=== PATIENT | male | born 1955 | race Caucasian/White ===

== ENCOUNTER → 2024-11-04 | Outpatient (CLI) | payer SELFPAY, OTHER ==
--- NOTE | 2024-11-04 07:37 | CT_ITS ---
PROCEDURE: Noncontrast CT of the left lower extremity. REASON FOR EXAM: Preoperative for left total knee arthroplasty TECHNIQUE: Contiguous axial CT images were obtained through the left hip, knee, and ankle. Sagittal and coronal reformats were created. COMPARISON: None. FINDINGS: Bones are osteopenic. Included bony pelvis and left hip joint are intact. Mild degenerative change left hip joint. No left femoral head avascular necrosis or sizable left hip joint effusion. Tiny fat containing left inguinal hernia. Soft tissues of the pelvis grossly unremarkable. Nonspecific edema in the anterior subcutaneous fat left knee. Moderate to severe tricompartmental degenerative changes of the left knee, greatest involving the medial compartment. No focal osteochondral lesion. There appears to be a 1 mm calcified loose intra-articular body at the posterior margin of the medial compartment. Small left knee effusion. Images through the left ankle show no acute fracture or dislocation. Serpiginous lucencies of the mid/posterior calcaneus, favored to represent vascular channels. CT/Extremity Lower without Contra IMPRESSION: Osteopenia. No acute bony abnormality of the left hip, knee, ankle. There are degenerative changes as above, to a moderate/severe degree involving the left knee. Severe medial compartment narrowing. Small left knee effusion. Nonspecific edema of the soft tissues and subcutaneous fat of the anterior left knee. One or more dose reduction techniques were used (e.g., Automated exposure contr ol, adjustment of the mA and/or kV according to patient size, use of iterative reconstruction technique). Reading [facility]
--- NOTE | 2024-11-04 07:37 | CT_ITS ---
PROCEDURE: EXTREMITY LOWER WITHOUT CONTRA REASON FOR EXAM: Surgical planning. [facility] protocol. TECHNIQUE: CT without intravenous contrast. Multiple axial coronal and sagittal images of the lower extremity was obtained. COMPARISON: None. FINDINGS: Bones: No evidence of fracture. Joints: Imaging of the right hip joint was obtained. No significant joint space narrowing is seen. Imaging of the right knee was obtained. There is a marked degree of joint space narrowing involving the medial compartment of the knee joint with degenerative spur formation of the distal medial femoral condyle. Marked degree of joint space narrowing involving the patellofemoral joint with anterior bony spur. Imaging of the right ankle was obtained. No significant abnormality is seen. Soft Tissues: Unremarkable. CT/Extremity Lower without Contra IMPRESSION: Marked degree of joint space narrowing with degenerative changes of the medial compartment of the right knee joint as well as the patellofemoral joint. One or more dose reduction techniques were used (e.g., Automated exposure contr ol, adjustment of the mA and/or kV according to patient size, use of iterative reconstruction technique). Reading Location: [id number]
== END | disposition home or self-care (01) ==
PROVIDERS: PCP Family Medicine; Referring Provider Orthopaedic Surgery; Visit Provider Orthopaedic Surgery
DX: M17.0 Bilateral primary osteoarthritis of knee (principal)
CPT/HCPCS: 73700

== ENCOUNTER 2024-11-15 14:43 | Inpatient (IN) | payer SELFPAY, OTHER ==
--- NOTE | 2024-11-04 07:34 | EKG12_ITS ---
Test Reason : PREOP Blood Pressure : */* mmHG Vent. Rate : 70 BPM Atrial Rate : 70 BPM P-R Int : 188 ms QRS Dur : 106 ms QT Int : 396 ms P-R-T Axes : -3 11 35 degrees QTcB Int : 427 ms Normal sinus rhythm Normal ECG Confirmed by VANESSA GARDINER, PAOLA ([id number]), senior technical editor ANTHONY ROBLES ([id number]) on 11/04/2024 12:53:57 PM Referred By: AUTUMN Confirmed By: PAOLA MENDEZ MD
[2024-11-04 08:54] LABS: Absolute Lymphocyte Count 2.27 X10^3/uL (0.83-4.51); Absolute Neutrophil Count 3.3 X10^3/uL (2.0-7.7); Basophil# 0.08 X10^3/uL; Basophil% 1.2 % (0-1); Eosinophil# 0.51 X10^3/uL; Eosinophils% 7.4 % (0-5); Hematocrit 42.2 % (40-54); Lymphocyte # 2.27 X10^3/ul (0.83-4.51); Lymphocyte % 33.1 % (19-41); Mean Corp Hgb Conc 33.2 g/dL (32-36); Mean Corpuscular Hgb 28.2 pg (27.0-32.0); Mean Corpuscular Volume 84.9 fL (80-94); Mean Platelet Vol. 10.2 fl (6.2-12.0); Monocyte# 0.69 X10^3/uL; Monocyte% 10.1 % (0-10); NRBC Flagged by Analyzer 0 % (0-5); Neutrophil # 3.29 X10^3/uL (2.7-7.7); Neutrophil % 47.9 % (47-70); Platelet Count 233 K/mm3 (150-450); RBC Distribution Width CV 14.5 % (11.6-14.6); RBC Distribution Width SD 44.8 fl (35.1-43.9); Red Blood Count 4.97 M/mm3 (4.6-6.2); White Blood Count 6.9 K/mm3 (4.4-11.0)
[2024-11-04 09:10] LABS: Partial Thromboplast Time 25.5 Seconds (24.1-36.2)
[2024-11-04 09:15] LABS: Anion Gap 6 (5-15); BUN 24 mg/dL (7-18); BUN/Creat Ratio 20.7 RATIO (10-20); Calcium,Total 8.9 mg/dL (8.5-10.1); Chloride 109 mmol/L (98-107); Creatinine, Serum 1.16 mg/dL (0.70-1.30); EST Glomerular Filtration Rate 67 mL/min (>60); Est Glom Filt Rate - Afr Amer 81 mL/min (>60); Glucose 104 mg/dL (74-106); Magnesium 2.1 mg/dL (1.6-2.6); Potassium 4.1 mmol/L (3.5-5.1); Prothrombin Time (Protime)PT. 13.2 SECONDS (11.7-14.9); Sodium Level 140 mmol/L (136-145)
[2024-11-04 09:24] LABS: Hemoglobin A1c 6.7 % (3.8-5.6)
[2024-11-05 05:07] LABS: Fructosamine 234 umol/L (0-285)
[2024-11-15] VITALS (16 sets, daily range): BP systolic 111–184; BP diastolic 75–98; PULSE 67–74; RESP 16–24; TEMP 36.1–36.9; O2SAT 93–99; BMI 35.9; BMI 35.8
[2024-11-15 09:23] LABS: Bedside Glucose 129 mg/dL (74-106)
[2024-11-15] MEDS: 0.9% Normal Saline (1000mL) 1,000 ML 15 ML IV (09:26)
[2024-11-15] MEDS: Celecoxib 200 MG Capsule 400 MG PO (09:27)
[2024-11-15] MEDS: Magnesium 1 GM over 15 mins IV (09:27)
[2024-11-15] MEDS: Gabapentin 600 MG Tablet PO (09:28)
[2024-11-15] MEDS: Scopolamine 1mg/72hr Patch 1 PATCH TD (09:28)
[2024-11-15] MEDS: Acetaminophen 500 MG Tablet 1000 MG PO ×2 (09:29→21:30)
--- NOTE | 2024-11-15 09:44 | PCM.PRE.AN2 ---
ASA Classification* ASA Classification ASA Classification: 2 Assessment & Plan Anesthesia* Anesthesia Assessment Anesthesia Assessment: Discussed sedation and/or anesthesia options, risks, benefits, and alternatives with patient/parents/legal guardian/POA. Questions invited. The patient/parents/legal guardian/POA seems to understand and agrees to proceed with anesthesia plan. Reviewed the physical assessment, medical history, allergy history and patient home medications list prior to surgery/procedure/anesthetic and documented any changes. Performed airway and anesthesia risk assessments. Anesthesia Type Anesthesia Type: General and Block (Patient is consented for bilateral adductor canal blocks.) History Source History Obtained from:: Patient and Chart Anesthesia Focused Assessment* Temperature: 98.5 F Pulse Rate: 71 Blood Pressure: 184/98 Respiratory Rate: 18 Pulse Ox: 97 Oxygen Delivery Method: Room Air Airway Assessment Mouth opens: >3 cm Mallampati Score: I Teeth Condition: Missing (Multiple missing teeth. Rest are tight.) Neck Range of motion (ROM): Full ROM Focused Labs Anesthesia Preop lab: CBC WBC 6.9 K/mm3 (4.4-11.0) 11/04/24 08:21 11/04/24 RBC 4.97 M/mm3 (4.6-6.2) 11/04/24 08:21 11/04/24 Hgb 14.0 g/dL (13.0-16.5) 11/04/24 08:21 11/04/24 Hct 42.2 % (40-54) 11/04/24 08:21 11/04/24 Plt Count 233 K/mm3 (150-450) 11/04/24 08:21 11/04/24 CHEMISTRY Potassium 4.1 mmol/L (3.5-5.1) 11/04/24 08:21 11/04/24 Sodium 140 mmol/L (136-145) 11/04/24 08:21 11/04/24 Magnesium 2.1 mg/dL (1.6-2.6) 11/04/24 08:21 11/04/24 BUN 24 mg/dL (7-18) H 11/04/24 08:21 11/04/24 Creatinine 1.16 mg/dL (0.70-1.30) 11/04/24 08:21 11/04/24 Glucose 104 mg/dL (74-106) 11/04/24 08:21 11/04/24 POC Glucose 129 mg/dL (74-106) H 11/15/24 09:04 11/15/24 COAG PT 13.2 SECONDS (11.7-14.9) 11/04/24 08:21 11/04/24 Pre-Assessment Diagnosis/Proposed Procedure Planned Operative Procedure(s): (B) ERAS, Total Knee Replacement Robotic Arm Assist Anesthesia History Anesthesia History - industrial order clerk: Anesthesia History - industrial order clerk Hx Hospitalization No 11/01/24 08:38 Any Problems With Anesthesia No 11/01/24 08:38 Cholinesterase deficiency No 11/01/24 08:38 You/Your Family Experience No 11/01/24 08:38 fever (hyperthermia) with Relationship Recent Exposure to Contagious No 11/15/24 09:02 Disease Does patient have nerve No 11/01/24 08:38 stimulator Patient instructed to have device shut off --Does patient have Pacemaker No 11/15/24 09:02 or ICD? When Was Last Pacemaker Check QUESTION #4 FULL TEXT: You/Your Family Experience fever (hyperthermia) with Anesthesia Last Oral Intake Last Oral intake: Last Oral Intake NPO since 06:30 11/15/24 09:02 Meds taken in AM with sips of Yes 11/15/24 09:02 water? Meds patient instructed to take am of surgery Any additional information?: Yes NPO since: 06:30 (Patient had his preop Ensure at 6:30 AM.) Meds taken in AM with sips of water?: Yes PONV PONV - industrial order clerk: PONV - industrial order clerk Female No 11/01/24 08:38 HX of Motion Sickness No 11/01/24 08:38 HX of N/V After Surgery No 11/01/24 08:38 Non-Smoker Yes 11/01/24 08:38 Duration of Surgery greater Yes 11/01/24 08:38 than 60 minutes Number of Risk Factors 2 11/01/24 08:38 PONV Score Moderate Risk 11/01/24 08:38 Height & Weight Height & Weight: Anesthesia: Height & Weight Height 5 ft 6 in 11/15/24 09:02 Weight: 101 kg 11/15/24 09:02 Body Mass Index (BMI) 35.9 11/15/24 09:02 Respiratory Assessment Respiratory Assessment - industrial order clerk: Respiratory Tract Infection Hx - industrial order clerk Hx Respiratory Tract Infection No 11/01/24 08:38 STOP Sleep Apnea STOP Sleep Apnea - industrial order clerk: STOP Sleep Apnea - industrial order clerk Hx Hypertension Yes: CONTROLLED ON MED 11/01/24 08:38 Hx Sleep Apnea No 11/01/24 08:38 CPAP BIPAP Do you snore loudly (louder No 11/01/24 08:38 than talking or can be heard Do you often feel tired/ No 11/01/24 08:38 fatigued/ sleepy during daytime? Has anyone observed you stop No 11/01/24 08:38 breathing during sleep? STOP Results Negative 11/01/24 08:38 QUESTION #5 FULL TEXT : Do you snore loudly (louder than talking or can be heard through closed doors)? Tobacco Use History Tobacco Use History - industrial order clerk: Tobacco Use History - industrial order clerk Tobacco Use Smoking Status Never smoker 11/01/24 08:38 Hx Tobacco Use No 11/01/24 08:38 Years Smoking Packs Smoked per Day Smoking Cessation Date was within the last 15 years Hx Smoking Cessation Date Hx Smoking Cessation Counseling Hematologic Medial History Hematologic Hx - industrial order clerk: Hematologic Medical Hx - documentation coordinator Hx of Blood Transfusion No 11/01/24 08:38 Hx of Transfusion in last 3 No 11/01/24 08:38 Months Date of Last Transfusion (if within last 3 months) Ever experience any problems No 11/01/24 08:38 with transfusion(s)? Specify any problems Hx of Preganancy in last 3 N/A 11/01/24 08:38 Months Nurse Filling Out Transfusion VCHRISTIN 11/01/24 08:38 & Questions: Date: 11/01/24 11/01/24 08:38 Time: 08:39 11/01/24 08:38 Patient unable to answer at this time (ie. confused, unrespo /Reproduction History /Reproductive History - industrial order clerk: /Reproductive Hx- industrial order clerk Hx Now Gestational Age (in weeks): EDC: Hx Hx Para Hx Section SAB Active Medications Active Medications: Current Medications Generic Name Dose Route Start Last Admin Trade Name Freq PRN Reason Stop Dose Admin Acetaminophen 1,000 mg 11/15/24 10:30 11/15/24 09:29 Acetaminophen 500 Mg Tablet PO 11/15/24 10:31 1,000 mg X1 ONE Administration Celecoxib 400 mg 11/15/24 10:30 11/15/24 09:27 Celecoxib 200 Mg Capsule PO 11/15/24 10:31 400 mg X1 ONE Administration Dexamethasone Sodium Phosphate 10 mg 11/15/24 10:30 Dexamethasone 10 Mg/Ml Vial IV 11/15/24 10:31 X1 ONE Gabapentin 600 mg 11/15/24 10:30 11/15/24 09:28 Gabapentin 600 Mg Tablet PO 11/15/24 10:31 600 mg X1 ONE Administration Cefazolin Sodium 2 gm/ N/A 20 mls @ 400 mls/hr 11/15/24 10:30 IV 11/15/24 10:32 PREOP ONE Tranexamic Acid 1,000 mg/ 110 mls @ 660 mls/hr 11/15/24 10:30 Sodium Chloride IV 11/15/24 10:39 X1 ONE Tranexamic Acid 1,000 mg/ 110 mls @ 660 mls/hr 11/15/24 10:30 Sodium Chloride IV 11/15/24 10:39 X1 ONE Lactated Ringer's 1,000 mls @ 125 mls/hr 11/15/24 10:30 IV 11/15/24 18:29 .Q8H REJI Magnesium Sulfate 1 gm/ 102 mls @ 408 mls/hr 11/15/24 10:30 11/15/24 09:27 Dextrose IV 11/15/24 10:44 408 mls/hr X1 ONE Administration Sodium Chloride 1,000 mls @ 15 mls/hr 11/15/24 08:50 11/15/24 09:26 IV 11/20/24 22:09 15 mls/hr .Q48H REJI Administration Protocol Insulin Human Lispro 1 - 6 unit 11/15/24 10:30 Insulin Lispro 100 Unit/Ml Insuln.Pen SC 11/15/24 18:00 Q4H PRN PRN BG>/= 180, SEE PROTOCOL Protocol Scopolamine HBr 1 patch 11/15/24 10:30 11/15/24 09:28 Scopolamine 1mg/72hr Patch TD 11/15/24 10:31 1 patch X1 ONE Administration Sodium Chloride 5 - 15 ml 11/15/24 10:30 0.9% Nacl Peripheral Flush Adult/Peds IV UD PRN SALINE FLUSH PFSH Medical History Wears glasses Arthritis Kidney stones Injury of head and neck Non-smoker Asthma History of pain when walking Hypertension Home Medications ?Medication ?Instructions ?Recorded ?Last Taken ?Type atenolol 50 mg tablet 50 mg PO QDAY BP 09/28/24 11/15/24 06:30 History lisinopril 40 mg tablet 40 mg PO QDAY BP 09/28/24 11/01/24 History albuterol sulfate 90 mcg/actuation 2 puff inhalation Q6H PRN wheezing 11/01/24 Unknown History aerosol inhaler fluticasone furoate 100 1 inh inhalation DAILY asthma 11/15/24 11/14/24 History mcg-vilanterol 25 mcg/dose inhalation powder Allergy/AdvReac Type Severity Reaction Status Date / Time No Known Allergies Allergy Verified 11/15/24 09:00 Family History Mother Cancer Father Cancer Surgical History H/O hernia repair H/O rotator cuff surgery Social History household members: spouse Smoking Status: Never smoker alcohol intake: never Review of Systems (Anesthesia) ROS Narrative System reviewed and no additional complaints, except as documented.
--- NOTE | 2024-11-15 09:47 | PCM.HP.BLA ---
History and Physical Date of Admission: 11/15/24 [facility] [address] [place] [address] OFFICE VISIT Date of Service: 09/28/24 MR#: [id number] Acct: [id number] Name: SHANNAN ALEXANDER Rep #: [id number] : 1955 Provider: Dr. Neri Ward DO Age/Sex: 69/M Location: [facility] [place].[facility] Status: Signed Intake Vital Signs 09/28/2507:35 Height 5 ft 7 in Weight: 222 lb BMI 34.7 Intake Visit Reasons: BL KNEES Is patient in pain?: Yes Pain scale (1-10): 6 Allergies No Known Allergies Allergy (Unverified 09/28/24 08:36) Medications ?Medication ?Instructions ?Recorded ?Confirmed ?Type atenolol 50 mg tablet 50 mg PO QDAY 09/28/24 09/28/24 History lisinopril 40 mg tablet 40 mg PO QDAY 09/28/24 09/28/24 History Have you fallen in the past year?: No PFSH Surgical History (Updated 09/28/24 @ 08:38 by María Elena Stephens) H/O hernia repair H/O rotator cuff surgery Family History (Updated 09/28/24 @ 08:39 by María Elena Stephens) Mother CancerFather Cancer Social History household members: spouse Smoking Status: Never smoker alcohol intake: never HPI BL KNEES Details: This documentation accurately reflects the service provided and the decisions made by me, Dr. Neri Ward, 09/28/24 0754. Part of today?s visit was documented by [ ], acting as scribe. SHANNAN ALEXANDER is a 69 year old M here today for bilateral knee pain 1 is not worse than the other. Patient notes that he has had knee pain for many years with his pain worsening. Patient denies any known injury. Patient denies any knee surgery. He complains of pain all over his knees. He has increased pain with ambulation, prolonged standing and ambulating stairs which are affecting his activities of daily living. He isnt able to carry things up the stairs. Patient denies any popping or clicking. Patient denies any knee instability. He denies any injections, physical therapy, or bracing. He took tippi tea which was helpful but caused him to gain weight because of the steroid that was in it. Patient had xrays at [facility] which is here for review. He has not had any treatment. He denies any MRI. Patient notes that he takes ibuprofen three tablets if needed. He denies any medical problems. Ortho Exam General General: Yes no acute distress Neurologic: Yes alert and Yes oriented x3 Psychologic: Yes reasonable and appropriate Right Knee Skin/Wound: Yes CDI, No erythema, No ecchymosis and No swelling Knee ROM: Yes ROM-Extension -20 to 0 (-5) and Yes ROM-Flexion 0-140 (118) Stability: NML: Anterior Drawer, NML: Posterior Drawer, NML: Valgus 0, NML: Valgus 30 (3mm medial gapping), NML: Varus 0 and NML: Varus 30 Patella Translation: 1 KNEE: varus deformity, good ankle range of motion. normal sensation to light palpation. Left Knee Skin/Wound: Yes CDI, No ecchymosis, No erythema and No swelling Knee ROM: Yes ROM-Extension -20 to 0 (-4) and Yes ROM-Flexion 0-140 (125) Stability: NML: Anterior Drawer, NML: Posterior Drawer, NML: Valgus 0, NML: Valgus 30 (2mm medial gapping), NML: Varus 0 and NML: Varus 30 Patella Translation: 1 KNEE: varus deformity, good ankle range of motion Head: Normocephalic Atraumatic Chest: symmetrical rise, non-labored breathing, no audible wheeze Abdomen: no guarding, non-rigid Supplemental Info 03/28/2024 x-ray left knee on disc: Advanced [id number] medial compartment arthrosis with varus deformity moderate patellofemoral arthrosis mild lateral compartment arthrosis 03/28/2024 x-ray right knee on disc: Advanced [id number] medial compartment arthrosis with varus deformity moderate patellofemoral arthrosis mild lateral compartment arthrosis Coding Level of Care Code Off vis,new,level 3 Diagnoses Bilateral primary osteoarthritis of knee M17.0 Assessment and Plan Assessment and Plan (1) Bilateral primary osteoarthritis of knee: Status: Acute Plan Spoke with the patient about the anatomy of the knee and etiology of his pain. He has advanced knee osteoarthritis worse medial compartment bilateral. Explained his options- steroid injection, viscosupplementation injections, increase ibuprofen to take daily, physical therapy, bracing, or a total knee arthroplasty. The viscosupplementation injections might not be as helpful with his level of osteoarthritis. Recommended the patient not take the tippi tea due to the steroid not being measured in the tea. Patient may have a steroid injection every 3 months as needed. Patient wishes to proceed with bilateral total knee arthroplasty. explained the surgery procedure, risks and benefits. Spoke with the patient about having bilateral total knee arthroplasty and the increased risks of doing both at the same time and I would recommend he does 1 at a time. He has increased risks of infection and blood clot. Patient will be on a blood thinner post op help with risk of blood clot however he can still get 1. He should also elevate his leg post op and wear compression stockings. Spoke with him about iovera procedure to help with post op pain. Patient will need a CT scan for makoplasty. Spoke with him about having a mechanical feel post op as well as lateral sided numbness. He will do formal physical therapy immediately following his surgery to prevent stiffness. He will need to achieve full range of motion by 6 weeks otherwise risking manipulation under anesthesia and chronic knee stiffness . In regards to kneeling he may never feel comfortable kneeling however I would recommend if he does try it to wear a knee pad . Explained the lengthy time it may take to heal and it may take up to 2 years to fully heal. Risks, benefits and alternatives of surgery reviewed including but not limited to bleeding, infection, nerve, artery and/or tissue damage, fracture, VTE, mechanical feel of the knee, continued pain, stiffness and expected post-operative course. He would need to stop all NSAIDs 7 days prior to surgery. Patient is inpatient surgery and may require rehab or transitional care considering the extensive nature of bilateral knee arthroplasty tentative surgery date November 15, 2024. Follow up for iovera or 2 week post op or sooner if pain, swelling, numbness or associated symptoms, or concerns develop. All questions answered. Patient in agreement of plan. Clinical Quality Measures Falls Risk Screening/Assistive Devices Have you fallen in the past year?: No 09/28/24 0959 <Electronically signed by Neri Ward DO> Date Neri Ward DO I have examined the patient and the H&P has been reviewed. There are no clinical changes since date of exam.
[2024-11-15] MEDS: Cefazolin 2 GM in Syringe 10 ML IV (10:22)
--- NOTE | 2024-11-15 10:30 | KNEE_PTH ---
PATIENT: SHANNAN ALEXANDER LOC: MS3 U#:[id number] AGE/SX: 69/M ROOM: [facility] [place] RE11/15/[address]: Dr. Nrei Ward DO : 1955 BED: 1 DIS: 11/17/2024 SPEC #: [id number] RECD: 11/15/24 17:03 STATUS: RADHA HERI #: [id number] GÓMEZ: 11/15/24 10:[address]: Neri Ward DEPT: SURGICAL PATHOLOGY RECD BY: Chi Grace ENTERED: 11/16/24 08:38 SP TYPE: TOTAL KNEE OTHR DR: Dr. Ping Murray MD Tissues: A - Knee, NOS B - Knee, NOS Procedures: Decalcification bone/plaque Surgery Specimen Level IV HEADER OPERATION: Total knee replacement robotic arm assist PRE-OP DIAGNOSIS: Bilateral primary osteoarthritis of knee TISSUE SUBMITTED: A- Right knee bone and tissue, B- Left knee bone and tissue MICROSCOPIC DIAGNOSIS A. Right knee, bone and soft tissue, total knee arthroplasty: * Articular bone with reactive and degenerative changes. * Fibroadipose with mild synovial hyperplasia. B. Left knee, bone, total knee arthroplasty: * Articular bone with reactive and degenerative changes. MICROSCOPIC DESCRIPTION Slides are reviewed. GROSS DESCRIPTION Received is one container designated bone and soft tissue right knee. The specimen consists of multiple fragments of pearson-yellow bone measuring in aggregate 9 x 9 x 4 cm. Also in the specimen container is multiple fragments of yellow-white soft tissue measuring in aggregate 5 x 1.5 x 1 cm. A number of bony fragments contain articular surfaces consistent with tibial plateau and femoral condyle and displaying prominent osteophyte formation, eburnation and bone erosion. [employer]ing [employer] Instructor sections are submitted in two cassettes as follows: 1 - soft tissue, 2 - bone after decalcification. B. Received is one container designated bone and soft tissue left knee. The specimen consists of multiple fragments of pearson-yellow bone measuring in aggregate 10 x 9 x 3 cm. No soft tissue is identified. A number of bony fragments contain articular surfaces consistent with tibial plateau and femoral condyle and displaying prominent osteophyte formation, eburnation and bone erosion. Banking And Finance Instructor sections are submitted in one cassette after decalcification. 11/16/2024 TC: CPT: 11561b8, [id number]
[2024-11-15] MEDS: TXA 1000mg in NS100 100ml (IVPB at Incision) 660 MG IV (10:35)
[2024-11-15] MEDS: dexAMETHasone 10 MG/ML Vial IV (10:45)
[2024-11-15] MEDS: TXA 1000mg in NS100 100ml (IVPB at Closure) 660 MG IV (12:41)
[2024-11-15] MEDS: Epinephrine (1 mg/ml) 1 MG/ML VIAL (14:39)
[2024-11-15] MEDS: 0.9% Normal Saline (Pres. free 10 ML Vial (14:40)
[2024-11-15] MEDS: dexAMETHasone 4 MG/ML Vial (14:40)
[2024-11-15] MEDS: Bupivacaine 0.5% PF 10 ML VIAL (14:41)
--- NOTE | 2024-11-15 14:43 | RAD_ITS ---
PROCEDURE: KNEE 1 OR 2 VIEWS REASON FOR EXAM: Total left knee replacement. TECHNIQUE: 2 view(s) of the left knee COMPARISON: None. FINDINGS: The patient is status post total knee replacement. There is good alignment. Postoperative soft tissue changes. RAD/Knee 1 or 2 Views IMPRESSION: Status post total knee replacement. There is good alignment. Postoperative so ft tissue changes. Reading Location: [facility]
--- NOTE | 2024-11-15 14:43 | RAD_ITS ---
PROCEDURE: KNEE 1 OR 2 VIEWS REASON FOR EXAM: Total knee replacement. TECHNIQUE: 2 view(s) of the right knee COMPARISON: None. FINDINGS: The patient is status post right knee replacement. There is good alignment. Postoperative soft tissue changes. RAD/Knee 1 or 2 Views IMPRESSION: Status post total knee replacement. There is good alignment. Postoperative soft tissue changes. Reading Location: [facility]
--- NOTE | 2024-11-15 14:47 | OP.PCM_ITS ---
Operative Report (Standard) Operative Information Date of Procedure: 11/15/24 Pre-Operative Diagnosis: Bilateral knee DJD Post-Operative Diagnosis: Same Surgery/Procedure Performed: Bilateral total knee arthroplasty weft straightener: Yes Assistant Passenger Locomotive Engineer: Karri Ramírez Tasks completed by accounts receivable assistant: Opening & closing, Implanting device and Retracting Additional certified pharmacist assistant?: No Type of Anesthesia: General RN Documented Start/Stop Times: Operation Date: 11/15/24 10:30 Case Time Into Pre-Op 11/15/24 08:44 Out of Pre-Op 11/15/24 10:20 Anesthesia Start 11/15/24 10:22 Into Room 11/15/24 10:22 Procedure Start 11/15/24 10:47 Procedure Start Time: 10:47 Procedure Stop Time: 14:47 Select all DRAINS/GRAFTS/IMPLANTS that apply: Prosthetic device Prosthetic device details: [place] triathlon Estimated Blood Loss: 200 Specimen collected: Yes Description of specimen(s) removed: Bone and soft tissue Description of surgery: Procedure #1 Preoperative diagnosis: Right knee DJD Postoperative diagnosis: Same Procedure: Right total knee arthroplasty CT guided Robotic Assisted Implant: [place] triathlon press fit, femoral component size 4, tibial baseplate size 5, asymmetric patella size 35, polyethylene X3 size 9 CS Anesthesia: General With adductor canal block postoperatively Tourniquet time: 18 minutes at 300 mmHg Complications: None Condition: Stable to PACU Estimated blood loss: 100 cc Medical Services Assistant Karri Ramírez. My physician certified pharmacist assistant was a vital part of this case. He was important in appropriate retraction during the case, and protection of soft tissues during procedure. His intimate knowledge of the case and my steps aided in safe and expedient completion of the procedure as well as appropriate position of the extremity during the case. He was also vital in assisting with closure under my direct supervision. Indication for procedure: This is a 69-year-old male with longstanding history of bilateral degenerative joint diseaseof knees who has failed conservative treatment and wished to proceed with elective total knee arthroplasty. Risk benefits and alternatives were reviewed including; risk of bleeding, infection, nerve artery and tissue damage, continued pain, postoperative stiffness, venous thromboembolism, need for postoperative rehabilitation, mechanical feel to the knee, and expected postoperative course. The pre- operative CT and templating was performed with component sizing. Procedure: The patient was met in the preoperative holding area. The operative extremity was identified by both patient and physician and was marked. Patient was met by anesthesia. An adductor canal block was placed by anesthesia postoperatively the patient was brought back to the operating room on a wheeled cart and transferred to the operating table in the supine position. Anesthesia was started. A well-padded tourniquet was placed on the operative extremity. The patient was prepped and draped in the usual sterile fashion. A timeout was called to ensure the proper patient procedure and extremity were being contemplated. An esmarch was used to exsanguinate the extremity. The tourniquet was inflated. A 10 blade scalpel was used to make a midline incision down through the skin and subcutaneous tissue. Skin retractors placed. Bovie and Aquamantis were used to perform meticulous hemostasis. full-thickness flaps were elevated medial and lateral along the joint capsule. A deep blade scalpel was used to perform a medial parapatellar arthrotomy. The knee was brought to full extension. A bovie was used to release the soft tissues off the most proximal aspect of the medial tibial plateau, a three-quarter inch curved osteotome was also used in this process. The infrapatellar fat pad was excised. The suprapatellar fat pad was excised partially anteriorolateraly and portion the anterioromedial pad was elevated from the femur. At this point our intra- articular femoral array was placed at a 45 degree angle proximal and posterior to the medial epicondyle. femoral checkpoint was placed at this time. Our tibial array was placed partially intra incisional 1 stab incision was made for the inferior pin with a 15 blade scaple, and pins were placed and attached to the tibial array , tibial checkpoint was placed in the proximal tibial metaphysis. Tourniquet was let down. At this point registration mancini were taken throughout the knee . Once the knee was registered we then tensioned the medial and lateral ligaments in extension and 90 degrees of flexion. We then used these numbers to adjust our components within parameters to balance the knee in both flexion and extension once this was done on our monitor we then proceeded with using the robotic arm to make our tibial plateau cut, anterior and posterior chamfer and distal femur cuts. we removed the cut fragments with the use of a bovie and Shanice, we did use a lamina chemical test engineer to insure we visualized and removed all posterior osteophytes and at this time also used the Aquamantis on the posterior joint capsule. we then trialed and achieved the desired plan with a well-balanced knee. we used the green probe to francesco the corresponding tibial rotation based on our CT template. Lug holes were drilled in the femur the tibia preparation was completed with the appropriate sized base plate pinned based on previous rotation francesco. An appropriate sized fin punch was used on the tibia and 4 corner drill was used for the press fit component and the patella was prepared by first using a caliper to ensure sufficient bone stock and a patellar reamer to remove the desired amount of bone. lug holes drilled for an asymmetric poly. We then brought the knee through range of motion with excellent patellar tracking. We thoroughly irrigated the knee. Trial components were removed a posterior capsular injection was preformed with our standard cocktail. In addition the aqua Mantis was also used to aid in he mostasis. Betadine rinse was allowed to sit and washed out completely. Components were press-fit into place. Aricept rinse was then used followed by several more liters of irrigation after it was allowed to sit. The joint capsule was closed with #1 Ethibond [id number]-eulmo's in the upper part of the arthrotomy and #1 Vicryl in the lower part of the arthrotomy. , Followed by 2-0 Vicryl in the subcutaneous tissues with beti in the skin. Arrays and checkpoints were removed prior to closure all counts were correct stab incisions were closed with a staple standard dressing in the form of Mepilex AG for the main incision and a small Mepilex over the pin holes. Thigh-high SERJIO hose applied over top of dressing. Procedure #2 Preoperative diagnosis: Left knee DJD Postoperative diagnosis: Same Procedure: Left total knee arthroplasty CT guided Robotic Assisted Implant: [place] triathlon press fit, femoral component size 4, tibial baseplate size 5, asymmetric patella size 35, polyethylene X3 size 9 CS Anesthesia: General With adductor canal block Tourniquet time: 15 minutes at 300 mmHg Complications: None Condition: Stable to PACU Estimated blood loss: 100 cc Medical Services Assistant Karri Ramírez. My physician certified pharmacist assistant was a vital part of this case. He was important in appropriate retraction during the case, and protection of soft tissues during procedure. His intimate knowledge of the case and my steps aided in safe and expedient completion of the procedure as well as appropriate position of the extremity during the case. He was also vital in assisting with closure under my direct supervision. Indication for procedure: Same as above Procedure: The patient was met in the preoperative holding area. The operative extremity was identified by both patient and physician and was marked. Patient was met by anesthesia. An adductor canal block was placed by anesthesia postoperatively the patient was brought back to the operating room on a wheeled cart and transferred to the operating table in the supine position. Anesthesia was started. A well-padded tourniquet was placed on the operative extremity. The patient was prepped and draped in the usual sterile fashion. A timeout was called to ensure the proper patient procedure and extremity were being contemplated. An esmarch was used to exsanguinate the extremity. The tourniquet was inflated. A 10 blade scalpel was used to make a midline incision down through the skin and subcutaneous tissue. Skin retractors placed. Bovie and Aquamantis were used to perform meticulous hemostasis. full-thickness flaps were elevated medial and lateral along the joint capsule. A deep blade scalpel was used to perform a medial parapatellar arthrotomy. The knee was brought to full extension. A bovie was used to release the soft tissues off the most proximal aspect of the medial tibial plateau, a three-quarter inch curved osteotome was also used in this process. The infrapatellar fat pad was excised. The suprapatellar fat pad was excised partially anteriorolateraly and portion the anterioromedial pad was elevated from the femur. At this point our intra- articular femoral array was placed at a 45 degree angle proximal and posterior to the medial epicondyle. femoral checkpoint was placed at this time. Our tibial array was placed partially intra incisional 1 stab incision was made for the inferior pin with a 15 blade scaple, and pins were placed and attached to the tibial array , tibial checkpoint was placed in the proximal tibial metaphysis. Tourniquet was let down. At this point registration mancini were taken throughout the knee . Once the knee was registered we then tensioned the medial and lateral ligaments in extension and 90 degrees of flexion. We then used these numbers to adjust our components within parameters to balance the knee in both flexion and extension once this was done on our monitor we then proceeded with using the robotic arm to make our tibial plateau cut, anterior a nd posterior chamfer and distal femur cuts. we removed the cut fragments with the use of a bovie and Shanice, we did use a lamina chemical test engineer to insure we visualized and removed all posterior osteophytes and at this time also used the Aquamantis on the posterior joint capsule. we then trialed and achieved the desired plan with a well-balanced knee. we used the green probe to francesco the corresponding tibial rotation based on our CT template. Lug holes were drilled in the femur the tibia preparation was completed with the appropriate sized base plate pinned based on previous rotation francesco. An appropriate sized fin punch was used on the tibia and 4 corner drill was used for the press fit component and the patella was prepared by first using a caliper to ensure sufficient bone stock and a patellar reamer to remove the desired amount of bone. lug holes drilled for an asymmetric poly. We then brought the knee through range of motion with excellent patellar tracking. We thoroughly irrigated the knee. Trial components were removed a posterior capsular injection was preformed with our standard cocktail. In addition the aqua Mantis was also used to aid in hemostasis. Betadine rinse was allowed to sit and washed out completely. Components were press-fit into place. Aricept rinse was then used followed by several more liters of irrigation after it was allowed to sit. The joint capsu le was closed with #1 Ethibond rkwgll-en-gurku's in the upper part of the arthrotomy and #1 Vicryl in the lower part of the arthrotomy. , Followed by 2-0 Vicryl in the subcutaneous tissues with beti in the skin. Arrays and checkpoints were removed prior to closure all counts were correct stab incisions were closed with a staple standard dressing in the form of Mepilex AG for the main incision and a small Mepilex over the pin holes. Thigh-high SERJIO hose applied over top of dressing. Patient tolerated the procedure well and was directed to PACU in stable condition . There were no intraoperative complications. Surgical Findings: Degenerative joint disease Complications Complications: No
--- NOTE | 2024-11-15 15:11 | PCM.POST.ANE ---
Anesthesia: Postop Eval I Current Vital Signs Temperature: 97.1 F Pulse Rate: 74 Blood Pressure: 124/76 Respiratory Rate: 16 Pulse Ox: 95 Oxygen Delivery Method: Venturi Mask Oxygen Flow Rate (L/min): 6 Assessment Airway patent: Yes Spontaneous unlabored respirations: Yes Mental status: Calm nausea: No Vomiting: No Anesthesia Complication: No Fluid Hydration Crystalloid volume administer (ml): 1,900 Total IV fluid infused: 1,900 Progress Note Anesthesia document: Postop Eval 1 completed: Yes
[2024-11-15] MEDS: Lactated Ringers 1,000 ML 125 ML IV ×2 (16:00→17:45)
[2024-11-15] MEDS: Cefazolin 2 GM in Syringe IV (17:45)
--- NOTE | 2024-11-15 19:05 | POSTOPAN2_ITS ---
Anesthesia Postop Eval I Sum Postop Eval Completion status Anesthesia document: Postop Eval 1 completed: Yes Anesthesia Postop Eval I Summary Anesthesia Postop Eval I Summary: Anesthesia Postop Eval I: Assessment Summary Airway patent Yes 11/15/24 15:12 GRAIN OILSEED OR PASTURE FARM WORKER.[email or web address] Spontaneous unlabored Yes 11/15/24 15:12 GRAIN OILSEED OR PASTURE FARM WORKER.LMIL respirations Mental status Calm 11/15/24 15:12 GRAIN OILSEED OR PASTURE FARM WORKER.LMIL nausea No 11/15/24 15:12 GRAIN OILSEED OR PASTURE FARM WORKER.LMIL Vomiting No 11/15/24 15:12 GRAIN OILSEED OR PASTURE FARM WORKER.LMIL Anesthesia Postop Eval I: Fluid Summary Crystalloid volume administer 1,900 11/15/24 15:12 GRAIN OILSEED OR PASTURE FARM WORKER.LMIL (ml) Colloids volume administered ( ml) Blood Product volume administered (ml) Total IV fluid infused 1,900 11/15/24 15:12 GRAIN OILSEED OR PASTURE FARM WORKER.LMIL Anesthesia Postop Eval I: Summary Notes Anesthesia Complication No 11/15/24 15:12 GRAIN OILSEED OR PASTURE FARM WORKER.LMIL Anesthesia Complication Comment: Post-operative progress note Anesthesia: Postop Eval II Evaluation Mental status: Awake and Calm Pain Level: 1 nausea: No Vomiting: No Complications Anesthesia Complication: No
--- NOTE | 2024-11-15 19:05 | PCM.POSTANE2 ---
Anesthesia Postop Eval I Sum Postop Eval Completion status Anesthesia document: Postop Eval 1 completed: Yes Anesthesia Postop Eval I Summary Anesthesia Postop Eval I Summary: Anesthesia Postop Eval I: Assessment Summary Airway patent Yes 11/15/24 15:12 DIRECTOR OF COMMUNITY SERVICES.[email or web address] Spontaneous unlabored Yes 11/15/24 15:12 DIRECTOR OF COMMUNITY SERVICES.LMIL respirations Mental status Calm 11/15/24 15:12 DIRECTOR OF COMMUNITY SERVICES.LMIL nausea No 11/15/24 15:12 DIRECTOR OF COMMUNITY SERVICES.LMIL Vomiting No 11/15/24 15:12 DIRECTOR OF COMMUNITY SERVICES.LMIL Anesthesia Postop Eval I: Fluid Summary Crystalloid volume administer 1,900 11/15/24 15:12 DIRECTOR OF COMMUNITY SERVICES.LMIL (ml) Colloids volume administered ( ml) Blood Product volume administered (ml) Total IV fluid infused 1,900 11/15/24 15:12 DIRECTOR OF COMMUNITY SERVICES.LMIL Anesthesia Postop Eval I: Summary Notes Anesthesia Complication No 11/15/24 15:12 DIRECTOR OF COMMUNITY SERVICES.LMIL Anesthesia Complication Comment: Post-operative progress note Anesthesia: Postop Eval II Evaluation Mental status: Awake and Calm Pain Level: 1 nausea: No Vomiting: No Complications Anesthesia Complication: No
[2024-11-15] MEDS: Budesonide Respules 0.5 MG/2 ML AMPUL.NEB. INHALATION (19:27)
[2024-11-15] MEDS: Albuterol 2.5 MG/3 ML VIAL.NEB. INHALATION (19:28)
[2024-11-15] MEDS: Senna/Docusate Sodium 1 Tablet 2 TABLET PO (21:30)
[2024-11-15] MEDS: 0.9% NaCl Peripheral Flush Adult/Peds IV (21:30)
[2024-11-16] VITALS (9 sets, daily range): BP systolic 146–157; BP diastolic 75–95; PULSE 69–76; RESP 16–20; TEMP 36.6–36.8; O2SAT 95–100; BMI 35.8
[2024-11-16] MEDS: Cefazolin 2 GM in Syringe IV ×2 (01:47→10:12)
[2024-11-16] MEDS: oxyCODONE 5 MG Tablet PO ×3 (01:54→16:21)
[2024-11-16] MEDS: Lactated Ringers 1,000 ML 125 ML IV (01:54)
[2024-11-16] MEDS: Acetaminophen 500 MG Tablet 1000 MG PO ×3 (06:04→21:23)
[2024-11-16] MEDS: APIXABAN 2.5 MG TABLET (WCH) PO ×2 (06:04→21:23)
[2024-11-16] MEDS: Budesonide Respules 0.5 MG/2 ML AMPUL.NEB. INHALATION ×2 (07:30→19:57)
[2024-11-16] MEDS: Albuterol 2.5 MG/3 ML VIAL.NEB. INHALATION ×2 (07:35→19:57)
[2024-11-16 07:43] LABS: Hematocrit 34.7 % (40-54); Hemoglobin 11.3 g/dL (13.0-16.5); Mean Corp Hgb Conc 32.6 g/dL (32-36); Mean Corpuscular Volume 86.1 fL (80-94); Mean Platelet Vol. 10.4 fl (6.2-12.0); Platelet Count 224 K/mm3 (150-450); RBC Distribution Width CV 14.5 % (11.6-14.6); RBC Distribution Width SD 45.4 fl (35.1-43.9); Red Blood Count 4.03 M/mm3 (4.6-6.2); White Blood Count 12.2 K/mm3 (4.4-11.0)
[2024-11-16 09:00] LABS: Anion Gap 11 (5-15); BUN 24 mg/dL (4-19); BUN/Creat Ratio 20.3 RATIO (10-20); Calcium 7.9 mg/dL (7.6-11.0); Carbon Dioxide 21.5 mmol/L (22.0-29.0); Chloride 101 mmol/L (96-108); Creatinine, Serum 1.2 mg/dL (0.8-1.3); EST Glomerular Filtration Rate 69 (>60); Estimated Creatinine Clearance 66.48 ml/min; Glucose 195 mg/dL (70-99); Potassium 4.3 mmol/L (3.3-5.1); Sodium Level 134 mmol/L (133-145)
[2024-11-16] MEDS: Lisinopril 40 MG Tablet PO (10:13)
[2024-11-16] MEDS: Senna/Docusate Sodium 1 Tablet 2 TABLET PO ×2 (10:13→21:23)
[2024-11-16] MEDS: Atenolol 50 MG Tablet PO (10:13)
--- NOTE | 2024-11-16 11:00 | CASEMGMT ---
RYAN MILLER Assessment: Face to Face with pt for initial transition planning/care coordination assessment. RYAN MILLER introduced self and role at [facility], pt voices understanding and consents to assessment. Pt is A&O x4 and answers all questions appropriately at this time. Pt sitting up in chair with , dtr and granddtr at bedside. Pt agreeable to assessment with family present. Care providers, pharmacy, and demographics verified/updated. Admitting Dx: bilat total knees Strata Score: 1 PCP:Trevor Specialists:dawit Ward Pharmacy: [facility] Retail Insurance: [employer], [facility] Package Plan Prescription Benefit: no LNOK: Dara Clarke, ; Manuelito Clarke, son Living Arrangements: Pt lives with in a two story home with FFSU and a ramp to enter. Pt reports prior to surgery he was I in ADL/IADLs and was working. Pt denies concerns at home. Transportation: Pt drives self and denies concerns with transportation. DME:[facility] HHC/SNF:Denies hx of Pt states no concerns with going home at time of dc. Pt has outpt therapy set up for Thursday at 10am at [facility]. Pt states no further concerns/needs. CM to follow. Advised pt to ask CM if any further questions/concerns/needs arise, voices understanding. Pt Goal: Home with outpt therapy Plan: Home with outpt therapy Yolanda DAVIS CM
--- NOTE | 2024-11-16 12:24 | PCM.PN.ORT ---
Subjective Subjective Seen and examined. Doing okay pain controlled denies any fevers chills nausea vomit shortness of breath or chest pain he was up with physical therapy ambulating the halls did 200 steps reportedly by the patient. No complaints or concerns Objective Data Objective Data Vital Signs: Vital Signs Temp Pulse Resp BP Pulse Ox O2 Del Method O2 Flow Rate 98.1 F 76 20 H 154/82 H 97 Room Air 2 11/16/24 10:36 11/16/24 10:36 11/16/24 10:36 11/16/24 10:36 11/16/24 10:36 11/16/24 11:09 11/16/24 10:03 Oxygen Flow Rate (L/min) 2 Oxygen Delivery Method Room Air Weight: 222 lb 10.67 oz Body Mass Index (BMI) 35.8 Intake & Output: Intake and Output for Last 24 Hours 11/14/24 11/15/24 11/16/24 23:59 23:59 23:59 Intake Total 1591.17 / 1591.17 2040 / 2040 Output Total 500 / 500 Balance 1591.17 / 1341.17 1540 / 1540 Lab / Micro Data 11/16/24 06:46 11/16/24 06:46 Labs: Laboratory Results - last 24 hr 11/16/24 06:46: WBC 12.2 H, RBC 4.03 L, Hgb 11.3 L, Hct 34.7 L, MCV 86.1, MCH 28.0, MCHC 32.6, RDW Std Deviation 45.4 H, RDW Coeff of Dory 14.5, Plt Count 224, MPV 10.4, Sodium 134, Potassium 4.3, Chloride Direct 101, Carbon Dioxide 21.5 L, Anion Gap 11, BUN 24 H, Creatinine 1.2, Estim Creat Clear Calc 66.48, Est GFR (MDRD) Non-Af 69, BUN/Creatinine Ratio 20.3 H, Glucose 195 H, Calcium 7.9 Micro: Microbiology 11/04/24 08:21 Swab (Method) Nasal Screen MRSA/MSSA - Final Radiography Diagnostic Testing: Radiology Impression Knee X-Ray 11/15/24 14:43 IMPRESSION: Status post total knee replacement. There is good alignment. Postoperative soft tissue changes. Reading Location: [facility] Knee X-Ray 11/15/24 14:43 IMPRESSION: Status post total knee replacement. There is good alignment. Postoperative soft tissue changes. Reading Location: [facility] Physical Exam Const alert, oriented x3 and no apparent distress Constitutional Narrative: Good spirits multiple family members in the room Extremity Extremity Narrative: Bilateral lower extremities dressings clean dry intact compartment soft neurovascular intact EHL tibialis anterior gastrocsoleus intact sensation light touch. Assessment & Plan Assessment/Plan (1) S/P total knee arthroplasty: QUALIFIERS: Laterality: bilateral Qualified Code(s): Z96.653 - Presence of artificial knee joint, bilateral PLAN: Plan Postop day #1 bilateral total knee arthroplasty PT OT weightbearing as tolerated Pain control Tylenol scheduled oxycodone as needed DVT prophylaxis SCDs SERJIO hose Eliquis 2.5 mg twice daily DC planning home tomorrow
--- NOTE | 2024-11-16 12:27 | DCINST_ITS ---
Discharge Instructions Diet Discharge Diet: No restrictions DC O2, CPAP, BIPAP needs Home O2 Discharge instructions: No Dressing / Incision Weight Bearing Status: Full weight bearing Dressing / Incision Call your doctor if you observe: Shortness of breath and Chest pain Additional Dressing/Incision Instructions:: Ice and elevate lower extremities 2 weeks while not ambulating. Ambulation is encouraged. Weight bearing as tolerated. Use assistive devise for stability. Encourage FULL knee extension and flexion 1 time EVERY time you get up and down and MULTIPLE times per day. No showering until 72 hours after surgery. May begin showering postop day #3. Remove the dressing prior to shower and gently wash with warm water and antibacterial soap then pat dry and place abdominal pad (or plain gauze) and SERJIO hose over top. This is to be done daily. Do not submerge for 3 weeks. If not showering daily after the initial 72 hours then you must clean incision and change dressing daily after the dressing comes off, must come off by 7 days postop. Do not allow animals near the incision area. Keep clean. Follow anti- coagulation recommendations as prescribed. Do not take any NSAIDs while on blood thinner. Do not take any additional narcotic pain medication other than what was prescribed on your surgery day without discussing with physician. Narcotic medication can be addictive. Do not drink alcohol while taking narcotics. Supplement narcotic prescription with acetaminophen 1000 mg 4 times a day. Start physical therapy. If you are not currently scheduled for physical therapy or you are unsure of appointment time please call office [facility] to arrange. Call Dr. Ward with any concerns. Follow Up Care Please Follow Up With: Neri Ward DO When: 2 weeks Test Results: Test results from this visit will be discussed in further detail at your follow- up appointment, if applicable. Discharge Plan Admission Admit Date/Time: 11/15/24 14:43 Primary Reason for Your Visit: Bilateral total knee arthroplasty Attending Provider: Neri Ward Primary Care Provider: Ping Murray Discharge Orders/Prescriptions Prescriptions: New acetaminophen 500 mg tablet 1,000 mg PO Q6H Qty: 100 1RF oxycodone 5 mg tablet 5 - 10 mg PO Q4H PRN (Reason: pain) 7 Days Qty: 60 0RF Eliquis 2.5 mg tablet 2.5 mg PO BID Qty: 30 0RF Continued lisinopril 40 mg tablet 40 mg PO QDAY atenolol 50 mg tablet 50 mg PO QDAY albuterol sulfate 90 mcg/actuation HFA aerosol inhaler 2 puff inhalation Q6H PRN (Reason: wheezing) fluticasone furoate-vilanterol 100-25 mcg/dose blister with device 1 inh inhalation DAILY Disposition Disposition (needs filled in before D/C Order can be placed): Home, Self Care
[2024-11-17 02:30] VITALS: BP 150/93; PULSE 77; RESP 16; TEMP 36.9; O2SAT 97
[2024-11-17] MEDS: Acetaminophen 500 MG Tablet 1000 MG PO (05:44)
[2024-11-17 06:54] VITALS: PULSE 78; RESP 18
[2024-11-17] MEDS: Albuterol 2.5 MG/3 ML VIAL.NEB. INHALATION (06:54)
[2024-11-17] MEDS: Budesonide Respules 0.5 MG/2 ML AMPUL.NEB. INHALATION (06:54)
[2024-11-17 07:03] LABS: Hematocrit 30.9 % (40-54); Hemoglobin 10.3 g/dL (13.0-16.5); Mean Corp Hgb Conc 33.3 g/dL (32-36); Mean Corpuscular Hgb 28.2 pg (27.0-32.0); Mean Corpuscular Volume 84.7 fL (80-94); Mean Platelet Vol. 10.4 fl (6.2-12.0); Platelet Count 203 K/mm3 (150-450); RBC Distribution Width CV 14.8 % (11.6-14.6); RBC Distribution Width SD 45.8 fl (35.1-43.9); Red Blood Count 3.65 M/mm3 (4.6-6.2); White Blood Count 11.3 K/mm3 (4.4-11.0)
[2024-11-17 08:30] VITALS: BP 149/88; PULSE 80; RESP 18; TEMP 36.7; O2SAT 98
[2024-11-17] MEDS: Lisinopril 40 MG Tablet PO (08:35)
[2024-11-17] MEDS: Atenolol 50 MG Tablet PO (08:36)
[2024-11-17] MEDS: Senna/Docusate Sodium 1 Tablet 2 TABLET PO (08:36)
[2024-11-17] MEDS: APIXABAN 2.5 MG TABLET (WCH) PO (08:36)
--- NOTE | 2024-11-17 08:38 | PCM.PN.ORT ---
Objective Data Objective Data Vital Signs: Vital Signs Temp Pulse Resp BP Pulse Ox O2 Del Method O2 Flow Rate 98.1 F 80 18 149/88 H 98 Room Air 2 11/17/24 08:30 11/17/24 08:30 11/17/24 08:30 11/17/24 08:30 11/17/24 08:30 11/17/24 08:30 11/16/24 10:03 Oxygen Flow Rate (L/min) 2 Oxygen Delivery Method Room Air Weight: 222 lb 10.67 oz Body Mass Index (BMI) 35.8 Intake & Output: Intake and Output for Last 24 Hours 11/15/24 11/16/24 11/17/24 23:59 23:59 23:59 Intake Total 1591.17 / 1591.17 3290 / 3290 Output Total 1100 / 1500 192 / 1924 Balance 1591.17 / 1341.17 2190 / 1790 -192 / -192 Lab / Micro Data 11/17/24 06:19 11/16/24 06:46 Labs: Laboratory Results - last 24 hr 11/16/24 06:46: Sodium 134, Potassium 4.3, Chloride Direct 101, Carbon Dioxide 21.5 L, Anion Gap 11, BUN 24 H, Creatinine 1.2, Estim Creat Clear Calc 66.48, Est GFR (MDRD) Non-Af 69, BUN/Creatinine Ratio 20.3 H, Glucose 195 H, Calcium 7.9 11/17/24 06:19: WBC 11.3 H, RBC 3.65 L, Hgb 10.3 L, Hct 30.9 L, MCV 84.7, MCH 28.2, MCHC 33.3, RDW Std Deviation 45.8 H, RDW Coeff of Dory 14.8 H, Plt Count 203, MPV 10.4 Micro: Microbiology 11/04/24 08:21 Swab (Method) Nasal Screen MRSA/MSSA - Final Physical Exam Const alert, oriented x3, no apparent distress and well nourished Constitutional Narrative: A&O x 3, sitting up in chair eating breakfast. Pain controlled with Tylenol and or pain meds as ordered and use of ice machine. General Appearance: cooperative and well developed Extremity Extremity Narrative: Bilateral lower extremities dressings clean dry intact. Bilat lower leg compartments soft, non tender. Neurovascular intact EHL tibialis anterior gastrocsoleus intact sensation light touch. Full ROM of distal joints with no sx aggravation. Skin no rashes or lesions noted Psych mental status grossly normal and affect normal Assessment & Plan Assessment/Plan (1) S/P total knee arthroplasty: QUALIFIERS: Laterality: bilateral Qualified Code(s): Z96.653 - Presence of artificial knee joint, bilateral PLAN: Patient to discharge this morning with family. Prescription sent to pharmacy. Reviewed pain control with rest, elevation, ice, pain medications as needed for moderate to severe pain. Reviewed frequent range of motion as tolerated, ambulate as tolerated with walker. May resume regular diet Reviewed care of postop dressings. May remove on postop day 3 but gentle antibacterial soap and water washing. Plan for follow-up in office in 2 weeks as scheduled, sooner for changes or concerns. Call office for any concerns of infection including redness, warmth, streaking, fever, chills, purulent drainage or other concerns. (2) Bilateral primary osteoarthritis of knee:
[2024-11-17] MEDS: oxyCODONE 5 MG Tablet PO (08:41)
--- NOTE | 2024-11-17 09:03 | CASEMGMT ---
Addendum entered by Jillian Mendieta 11/17/24 09:10: RYAN MILLER into pt room, pt sitting up in bed. Pt feels he is doing well and anxious to go home. Pt aware of eliquis and no charge. Pt has therapy set up tomorrow. Pt denies further homegoing needs. Original Note: TC to [facility], savings card was used for eliquis, no charge.
[2024-11-17 11:08] LABS: Hepatitis B Core Ab Total Negative (Negative)
--- NOTE | 2024-11-17 11:40 | PHA.DC_ITS ---
Pharmacy [facility] has performed discharge medication reconciliation and counseling for this patient. 1. ACETAMINOPHEN 1000MG PO Q6 2. APIXABAN 2.5MG PO BID X 2 WEEKS 3. OXYCODONE 5-10MG PO Q4H PRN PAIN The patient's discharge medication list was reviewed for discrepancies and discrepancies were resolved. The patient was counseled on the following discharge medications and changes in medications for homegoing were reviewed. The Reason for Use, instructions for use, and potential side effects were reviewed for all new medications. The patient's questions regarding all of their medications were answered. The patient was able to verbally demonstrate an understanding of their discharge medications. Medications at Discharge Home Medications atenolol 50 mg tablet 50 mg PO QDAY BP 09/28/24 lisinopril 40 mg tablet 40 mg PO QDAY BP 09/28/24 albuterol sulfate 90 mcg/actuation aerosol inhaler 2 puff inhalation Q6H PRN wheezing 11/01/24 fluticasone furoate 100 mcg-vilanterol 25 mcg/dose inhalation powder 1 inh inhalation DAILY asthma 11/15/24 acetaminophen 500 mg tablet 1,000 mg (2 x 500 mg) PO Q6H #100 tabs 11/16/24 apixaban 2.5 mg tablet (Eliquis) 2.5 mg PO BID #30 tabs 11/16/24 oxycodone 5 mg tablet 5 - 10 mg (1 - 2 x 5 mg) PO Q4H PRN pain 7 days #60 tabs 11/16/24
[2024-11-17 20:12] LABS: HIV Nonreactive (Nonreactive); Hepatitis B Surface Antibody Nonreactive; Hepatitis B Surface Antigen Nonreactive (Nonreactive); Hepatitis C Antibody Nonreactive (Nonreactive)
== END 2024-11-17 11:24 | disposition home or self-care (01) | DRG 462 ==
PROVIDERS: Emergency Medicine; Admitting Provider Orthopaedic Surgery; PCP Family Medicine; Visit Provider Orthopaedic Surgery
PROC: 0SRC0JA Replacement of Right Knee Joint with Synthetic Substitute, Uncemented, Open Approach (ICD-10-PCS; principal; 2024-11-15 10:05)
DX: M17.0 Bilateral primary osteoarthritis of knee (principal); I10 Essential (primary) hypertension; J45.909 Unspecified asthma, uncomplicated; M25.561 Pain in right knee; M25.562 Pain in left knee; Z79.899 Other long term (current) drug therapy; Z87.442 Personal history of urinary calculi; Z79.51 Long term (current) use of inhaled steroids; Z98.890 Other specified postprocedural states
CPT/HCPCS: 36415; 73560; 80048; 82962; 82985; 83036; 83735; 85025; 85027; 85610; 85730; 86703; 86704; 86706; 86803; 86850; 86900; 86901; 87081; 87340; 88305; 88311; 93005; 94640; 94668; 97110; 97162; 97166; 97530; 97535; C1776; A4216; J2405; J3475